=== PATIENT | female | born 1980 | race Caucasian/White ===

== ENCOUNTER 2018-12-15 21:54 | Emergency (ER) | payer MEDICAID ==
[~2018-12-15] VITALS: Ht 165.1 cm; Wt 64.0 kg
[2018-12-15] MEDS ORDERED: PREDNISONE 20MG TABLET PO ONE (22:30)
[2018-12-16 00:15] VITALS: BP 128/68
== END 2018-12-16 00:46 | disposition home or self-care (01) ==
LOC: ER 21:54
DX: T78.40XA Allergy, unspecified, initial encounter (principal); R06.03 Acute respiratory distress; Z88.6 Allergy status to analgesic agent; X58.XXXA Exposure to other specified factors, initial encounter
CPT/HCPCS: 99283; J7512